=== PATIENT | male | born 1950 | race Caucasian/White ===

== ENCOUNTER 2020-02-28 08:32 | Emergency (ER) | payer BC ==
--- NOTE | 2020-02-28 09:10 | EDM.PDOC ---
ED HPI GENERAL MEDICAL PROBLEM - General Chief Complaint: Chest Pain Stated Complaint: L SIDE RIB INJURY Time Seen by Provider: 02/28/20 08:53 Source of Information: Reports: Patient, RN Notes Reviewed - History of Present Illness INITIAL COMMENTS - FREE TEXT/NARRATIVE: 69 yr old male slipped on some ice this morning, injured L ribs. Very painful to move. Mild pain with deep inspiration. Not short of breath. No other pain or injury. Left Chest Pain Score (Numeric/FACES): 10 - Related Data Allergies Allergy/AdvReac Type Severity Reaction Status Date / Time No Known Allergies Allergy Verified 02/28/20 08:54 Home Meds: Home Meds Acetaminophen/HYDROcodone [[place] 325-5 MG] 1 tab PO Q6H PRN #20 tablet 02/28/20 [Rx] Past Medical History Cardiovascular History: Reports: High Cholesterol, Hypertension Endocrine/Metabolic History: Reports: Diabetes, Type II - Past Surgical History Musculoskeletal Surgical History: Reports: Other (See Below) Other Musculoskeletal Surgeries/Procedures:: toe surgery; ankle surgery Social & Family History - Tobacco Use Tobacco Use Status *Q: Never Tobacco User ED ROS GENERAL - Review of Systems Review Of Systems: See Below Constitutional: Reports: No Symptoms HEENT: Reports: No Symptoms Respiratory: Reports: Pleuritic Chest Pain. Denies: Shortness of Breath, Wheezing Cardiovascular: Reports: Chest Pain (mostly with movement L lateral chest) GI/Abdominal: Denies: Abdominal Pain Musculoskeletal: Denies: Neck Pain, Back Pain, Leg Pain Skin: Reports: No Symptoms Neurological: Reports: No Symptoms ED EXAM, GENERAL - Physical Exam Exam: See Below General Appearance: Alert, Mild Distress, Other (moving slowly and carefully) Head: Atraumatic Neck: Supple Respiratory/Chest: No Respiratory Distress, Lungs Clear, Normal Breath Sounds, Other (mild tenderness L lateral chest) Cardiovascular: Regular Rate, Rhythm GI/Abdominal: Soft, Non-Tender Back Exam: No: Paraspinal Tenderness, Vertebral Tenderness Extremities: Normal Range of Motion Neurological: Alert, Oriented Skin Exam: Warm, Dry, Normal Color Course - Vital Signs Last Recorded V/S: Last Vital Signs Temp 97.2 F 02/28/20 08:49 Pulse 66 02/28/20 08:49 Resp 18 02/28/20 08:49 BP 211/110 H 02/28/20 08:49 Pulse Ox 100 02/28/20 08:49 - Orders/Labs/Meds Orders: Active Orders 24 hr Category Date Time Status Ribs 2V w Chest Lt [CR] Stat Exams 02/28/20 09:01 Taken - Re-Assessments/Exams Free Text/Narrative Re-Assessment/Exam: 02/28/20 09:41 X rays show fx of L 8th rib, no major displacement, lung markings are good. Departure - Departure Time of Disposition: 09:37 Disposition: Home, Self-Care 01 Condition: Fair Clinical Impression: Rib fracture Qualifiers: Encounter type: initial encounter Rib fracture type: single rib Fracture type: closed Laterality: left Qualified Code(s): S22.32XA - Fracture of one rib, left side, initial encounter for closed fracture - Discharge Information Prescriptions: Acetaminophen/HYDROcodone [[place] 325-5 MG] 1 tab PO Q6H PRN #20 tablet PRN Reason: Pain Instructions: Rib Fracture, [id number] Referrals: PCP,Not In Area [Primary Care Provider] - Forms: ED Department Discharge Additional Instructions: Your L 8th rib is fractured as discussed. Tylenol q 6 to 8 hr and aleve 1 tab 3 times daily or 2 aleve twice daily for discomfort. You may take hydrocodone if needed for severe pain, especially at night to help you sleep. Guanaco wrap OK for short periods of time as needed. Follow up clinic as needed, return to ED as needed. Sepsis Event Note (ED) - Evaluation Sepsis Screening Result: No Definite Risk - Focused Exam Vital Signs: Vital Signs Temp Pulse Resp BP Pulse Ox 02/28/20 08:49 97.2 F 66 18 211/110 H 100 - My Orders Last 24 Hours: My Active Orders 02/28/20 09:01 Ribs 2V w Chest Lt [CR] Stat - Assessment/Plan Last 24 Hours: My Active Orders 02/28/20 09:01 Ribs 2V w Chest Lt [CR] Stat
== END 2020-02-28 09:45 | disposition home or self-care (01) ==
LOC: JD.ED 08:32
DX: S22.32XA Fracture of one rib, left side, initial encounter for closed fracture (principal); E11.9 Type 2 diabetes mellitus without complications; I10 Essential (primary) hypertension; W00.0XXA Fall on same level due to ice and snow, initial encounter
CPT/HCPCS: 71101-LT; 99283-25; 99284